=== PATIENT | male | born 1990 | race Hispanic/Latino ===

== ENCOUNTER → 2023-04-15 | Emergency (ER) | payer SELFPAY ==
[~2023-04-15] MED LIST: METOPROLOL TAR 25 MG TAB ONE
[2023-04-15 14:43] LABS: Absolute Lymphocytes (CBC) 0.8 K/uL (0.7-4.9); Hematocrit 41.5 % (39.6-49.0); Lymphocytes % 7.3 % (15.3-44.8); MCV 89.8 fL (80-100); Platelets 310 thou/uL (152-406); RBC Red Blood Cell Count 4.62 M/uL (4.33-5.43)
[2023-04-15 15:07] LABS: Albumin 4.1 g/dL (3.4-5.0); Bilirubin Direct 0.1 mg/dL (0-0.2); Bilirubin Indirect, Calculated 0.3 mg/dL (0.2-0.8); Bilirubin Total 0.4 mg/dL (0.2-1.0); Magnesium 2.2 mg/dL (1.6-2.4); Potassium 3.6 mEq/L (3.5-5.1); Protein, Total 8.1 g/dL (6.4-8.2); Troponin High Sensitivity 3.3 pg/mL (<58.9)
[2023-04-15 15:09] LABS: Specific Gravity 1.005 (1.005-1.030); Urine Bacteria <20 /HPF (<20); Urine Bilirubin NEGATIVE (Negative); Urine Blood Negative (Negative); Urine Clarity Clear (Clear); Urine Color Colorless (Yellow); Urine Glucose NEGATIVE (Negative); Urine Protein NEGATIVE (Negative); Urine RBC None Seen /HPF (None Seen); Urine Urobilinogen Normal (Normal); Urine pH 6.5 (5.0-7.0)
[2023-04-15 15:14] LABS: Barbiturates NEGATIVE (NEGATIVE); Benzodiazepines NEGATIVE (NEGATIVE); Cocaine NEGATIVE (NEGATIVE); METHAMPHETAM NEGATIVE (NEGATIVE); Methadone NEGATIVE (NEGATIVE); Opiates NEGATIVE (NEGATIVE); Phencyclidine NEGATIVE (NEGATIVE); THC Cannibis NEGATIVE (NEGATIVE)
[2023-04-15 15:14] LABS: Protime INR 1.23
--- NOTE | 2023-04-15 15:24 | RAD REPORT ---
EXAM DESCRIPTION: Sanya Single View04/15/2023 2:19 pm CLINICAL HISTORY: PALPITATIONS COMPARISON: No comparisons TECHNIQUE: Portable AP view of the chest. FINDINGS: The lungs are clear. No pneumothorax or effusion. The cardiomediastinal contours are unre markable. IMPRESSION: No acute cardiopulmonary process.
--- NOTE | 2023-04-15 18:15 | ER ---
Nurse's Notes [facility] Name: Vinecnzo Hdez Age: 32 yrs Sex: Male : 1990 Arrival Date: 04/15/2023 Time: 13:16 Bed 12 Private MD: Diagnosis: Chest pain, unspecified;Palpitations Presentation: 04/15 13:58 Chief complaint: Patient states: Pt c/o rapid heart rate and chest pressure while tl4 driving at 1120 today. Pt has had several similar events and had episode of SVT. Pt denies SOB, diaphoresis, nausea. Coronavirus screen: At this time, the client does not indicate any symptoms associated with coronavirus-19. Ebola Screen: No symptoms or risks identified at this time. Initial Sepsis Screen: Does the patient meet any 2 criteria? No. Patient's initial sepsis screen is negative. Does the patient have a suspected source of infection? No. Patient's initial sepsis screen is negative. Risk Assessment: Do you want to hurt yourself or someone else? Patient reports no desire to harm self or others. Onset of symptoms was April 15, 2023 at 11:20. 13:58 Method Of Arrival: Ambulatory tl4 13:58 Acuity: DANIEL 2 tl4 Triage Assessment: 14:00 General: Appears in no apparent distress. Behavior is calm, cooperative. Pain: tl4 Complains of pain in chest. EENT: No deficits noted. No signs and/or symptoms were reported regarding the EENT system. Neuro: No deficits noted. Cardiovascular: Reports chest pain, palpitations, Denies diaphoresis, fatigue, lightheadedness, nausea, shortness of breath, syncope. Respiratory: No deficits noted. Denies cough, shortness of breath. GI: No deficits noted. No signs and/or symptoms were reported involving the gastrointestinal system. : No deficits noted. No signs and/or symptoms were reported regarding the genitourinary system. Musculoskeletal: No deficits noted. No signs and/or symptoms reported regarding the musculoskeletal system. Historical: - Allergies: 14:00 No Known Allergies; tl4 - Home Meds: 14:00 None [Active]; tl4 - PMHx: 14:00 SVT; tl4 - Immunization history:: Adult Immunizations unknown. - Social history:: Smoking status: Patient denies any tobacco usage or history of. Screenin:40 [facility] ED Fall Risk Assessment (Adult) History of falling in the last 3 months, bp including since admission No falls in past 3 months (0 pts). Abuse screen: Denies threats or abuse. Denies injuries from another. Nutritional screening: No deficits noted. Tuberculosis screening: No symptoms or risk factors identified. Assessment: 18:00 General: SEE TRIAGE NOTE. bp 18:40 Reassessment: DC HOME AMBULATORY. bp Vital Signs: 13:58 BP 152 / 105; Pulse 90; Resp 16; Temp 98.3(O); Pulse Ox 100% on R/A; Pain 5/10; tl4 18:40 BP 147 / 75; Pulse 85; Resp 16; Pulse Ox 100% ; bp 13:58 Pain Scale: Adult tl4 ED Course: 13:21 Patient arrived in ED. mg5 13:28 Nigel Mcduffie PA is PHCP. cp 13:28 Guillermo Ramsay MD is Attending Physician. cp 13:59 Triage completed. tl4 14:01 Arm band placed on right wrist. tl4 14:21 XRAY Chest (1 view) In Process Unspecified. EDMS 14:39 Basic Metabolic Panel Sent. bc6 14:39 CBC with Diff Sent. bc6 14:39 D-Dimer Sent. bc6 14:39 LFT's Sent. bc6 14:39 Magnesium Sent. bc6 14:39 PT-INR Sent. bc6 14:39 Troponin HS Sent. bc6 14:39 Inserted saline lock: 20 gauge in right antecubital area, using aseptic technique. bc6 Blood collected. 14:39 Urinalysis W/Microscopic Sent. bc6 14:39 UDS Sent. bc6 18:08 Timoteo King, RN is Primary Nurse. bp 18:40 Patient has correct armband on for positive identification. Provided Education on: N/A. bp Cardiac monitoring not applicable on this patient. 18:40 Patient maintains SpO2 saturation greater than 95% on room air. bp 18:42 No provider procedures requiring assistance completed. IV discontinued, intact, bp bleeding controlled, No redness/swelling at site. Pressure dressing applied. Administered Medications: 17:09 Drug: Metoprolol PO 12.5 mg PO once Route: PO; tl4 18:42 Follow up: Response: No adverse reaction bp Medication: 18:40 VIS not applicable for this client. bp Outcome: 18:14 Discharge ordered by . cp 18:42 Discharged to home ambulatory, bp 18:42 Condition: stable 18:42 Discharge instructions given to patient, Instructed on discharge instructions, follow up and referral plans. Demonstrated understanding of instructions, follow-up care, 18:42 Patient left the ED. bp Signatures: Dispatcher [employer] EDMS Nigel Mcduffie PA PA cp Peltier, Brian, RN RN bp Mary Nieto 6 Deb Jaffe mg5 Jaya Chamberlain RN RN tl4
--- NOTE | 2023-04-15 18:15 | EDPHYS ---
Physician Documentation [facility] Name: Vincenzo Hdez Age: 32 yrs Sex: Male : 1990 Arrival Date: 04/15/2023 Time: 13:16 Bed 12 Private MD: ED Physician Guillermo Ramsay HPI: 04/15 13:55 This 32 yrs old Male presents to ER via Ambulatory with complaints of Chest cp Pressure, Heart Rate Problem. 13:55 The patient presents with a history of heart racing. cp 13:55 Context: The symptoms occur at rest. Onset: The symptoms/episode began/occurred today. cp Duration: The patient or guardian reports a single episode, improved. Associated signs and symptoms: Pertinent positives: chest pain, Pertinent negatives: cough, fever, SOB, syncope, near-syncope, vomiting. Severity of symptoms: in the emergency department the symptoms have improved. The patient has experienced similar episodes in the past, several times, today's symptoms are similar, to when the patient was apparently diagnosed with SVT. Historical: - Allergies: 14:00 No Known Allergies; tl4 - Home Meds: 14:00 None [Active]; tl4 - PMHx: 14:00 SVT; tl4 - Immunization history:: Adult Immunizations unknown. - Social history:: Smoking status: Patient denies any tobacco usage or history of. ROS: 14:00 Constitutional: Negative for body aches, chills, fever, poor PO intake, cp 14:00 Cardiovascular: Positive for chest pain, palpitations, Negative for edema, cp 14:00 Eyes: Negative for injury, pain, redness, and discharge, cp 14:00 ENT: Negative for drainage from ear(s), ear pain, sore throat, difficulty swallowing, difficulty handling secretions, 14:00 Respiratory: Negative for cough, shortness of breath, wheezing, 14:00 Abdomen/GI: Negative for abdominal pain, nausea, vomiting, and diarrhea, 14:00 Skin: Negative for cellulitis, rash, 14:00 Neuro: Negative for altered mental status, dizziness, syncope, near syncope, weakness, 14:00 All other systems are negative, Exam: 14:00 ECG was reviewed by the Attending Physician. cp 14:05 Constitutional: The patient appears in no acute distress, alert, awake, cp non-diaphoretic, non-toxic, well developed, well nourished, 14:05 Head/Face: Normocephalic, atraumatic. cp 14:05 Eyes: Periorbital structures: appear normal, Pupils: equal, round, and reactive to cp light and accomodation, Extraocular movements: intact throughout, Conjunctiva: normal, no exudate, no injection, Sclera: no appreciated abnormality, Lids and lashes: appear normal, bilaterally, 14:05 ENT: External ear(s): are unremarkable, Nose: is normal, Mouth: Lips: moist, Oral cp mucosa: pink and intact, moist, Posterior pharynx: Airway: no evidence of obstruction, patent, 14:05 Neck: ROM/movement: is normal, is supple, without pain, no range of motions limitations, 14:05 Chest/axilla: Inspection: normal, 14:05 Cardiovascular: Rate: normal, Rhythm: regular, Edema: is not appreciated, JVD: is not appreciated, 14:05 Respiratory: the patient does not display signs of respiratory distress, Respirations: normal, no use of accessory muscles, no retractions, labored breathing, is not present, Breath sounds: are clear throughout, no decreased breath sounds, no stridor, no wheezing, 14:05 Abdomen/GI: Inspection: abdomen appears normal, Palpation: abdomen is soft and non-tender, in all quadrants, 14:05 Back: pain, is absent, ROM is normal, 14:05 Neuro: Orientation: to person, place \T\ time. Mentation: is normal, Cerebellar function: is grossly normal, Motor: moves all fours, strength is normal, Sensation: is normal, Gait: is steady, at a normal pace, without difficulty, Vital Signs: 13:58 BP 152 / 105; Pulse 90; Resp 16; Temp 98.3(O); Pulse Ox 100% on R/A; Pain 5/10; tl4 18:40 BP 147 / 75; Pulse 85; Resp 16; Pulse Ox 100% ; bp 13:58 Pain Scale: Adult tl4 MDM: 14:05 Patient medically screened. cp 18:13 Data reviewed: vital signs, nurses notes, lab test result(s), EKG, radiologic studies, cp plain films. 18:13 Differential diagnosis: arrythmia, stress disorder, electrolyte abnormality. I cp considered the following discharge prescriptions or medication management in the emergency department Medications were administered in the Emergency Department. See MAR. 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 Response to treatment: the patient's symptoms have mildly improved after treatment, and as a result, I will discharge patient. Special discussion: Based on the patient's history, exam, and Dx evaluation, there is no indication for emergent intervention or inpatient Tx. It is understood by the patient/guardian that if the Sx's persist or worsen they need to return immediately for re-evaluation. 04/15 13:49 Order name: Basic Metabolic Panel; Complete Time: 16:04 cp 04/15 16:04 Interpretation: Normal except: CL 108. cp 04/15 13:49 Order name: CBC with Diff; Complete Time: 16:04 cp 04/15 16:04 Interpretation: Normal except: JANETTE% 89.3; LYM% 7.3; MN% 2.8; NEUT A 9.3. cp 04/15 13:49 Order name: D-Dimer; Complete Time: 16:04 cp 04/15 13:49 Order name: LFT's; Complete Time: 16:04 cp 04/15 16:04 Interpretation: Normal except: AST 14; GLOB 4.0; A/G 1.0. cp 04/15 13:49 Order name: Magnesium; Complete Time: 16:04 cp 04/15 13:49 Order name: PT-INR; Complete Time: 16:04 cp 04/15 16:04 Interpretation: Normal except: PT 13.4. cp 04/15 13:49 Order name: Troponin HS; Complete Time: 16:04 cp 04/15 13:49 Order name: UDS; Complete Time: 16:04 cp 04/15 13:49 Order name: Urinalysis W/Microscopic; Complete Time: 16:04 cp 04/15 16:34 Order name: Troponin High Sensitivity: repeat at 1645; Complete Time: 18:07 04/15 18:07 Interpretation: Reviewed. 04/15 13:49 Order name: XRAY Chest (1 view); Complete Time: 16:04 04/15 16:05 Interpretation: Report review. 04/15 13:49 Order name: EKG; Complete Time: 13:49 04/15 13:49 Order name: Cardiac monitoring; Complete Time: 18:09 04/15 13:49 Order name: EKG - Nurse/Tech; Complete Time: 13:57 04/15 13:49 Order name: IV Saline Lock; Complete Time: 14:38 04/15 13:49 Order name: Labs collected and sent; Complete Time: 14:38 04/15 13:49 Order name: O2 Per Protocol; Complete Time: 18:09 04/15 13:49 Order name: O2 Sat Monitoring; Complete Time: 18:09 EC:00 Rate is 97 beats/min. Rhythm is regular. [place] interval is normal. QRS interval is normal. cp QT interval is normal. T waves are Inverted in lead III. Interpreted by me. Reviewed by me. Administered Medications: 17:09 Drug: Metoprolol PO 12.5 mg PO once Route: PO; tl4 18:42 Follow up: Response: No adverse reaction bp Disposition Summary: 04/15/23 18:14 Discharge Ordered Notes: Location: Home cp Problem: an ongoing problem cp Symptoms: have improved cp Condition: Stable cp Diagnosis - Chest pain, unspecified cp - Palpitations cp Followup: cp - With: Private Physician - When: 1 week - Reason: Recheck today's complaints Discharge Instructions: - Discharge Summary Sheet cp - Nonspecific Chest Pain, Adult cp - Palpitations cp - Aspirin and Your Heart cp Forms: - Medication Reconciliation Form cp - Thank You Letter cp - Antibiotic Education cp - Prescription Opioid Use cp - Patient Portal Instructions cp - Leadership Thank You Letter cp Addendum: 04/19/2023 00:58 I was immediately available for consultation during this patient's visit. I did not e c2 personally see the patient or discuss the patient with the MILES. . Signatures: Dispatcher [employer] Nigel Mcgraw PA PA cp Guillermo Ramsay MD MD ec2 Jaya Chamberlain RN RN tl4 Fernando, Timoteo RN bp
[2023-04-15 18:54] VITALS: BP 147/75; TEMP 98.3; O2SAT 100
--- NOTE | 2023-04-19 14:44 | EKG ---
Test Date: 2023-04-15 Test Time: 13:53:39 Risk Compliance Manager: TL MEASUREMENT RESULTS: Intervals: Rate: 97 MT: 136 QRSD: 72 QT: 348 QTc: 441 Lewis: P: 74 MT: 136 QRS: 61 T: 15 INTERPRETIVE STATEMENTS: Normal sinus rhythm Nonspecific T wave abnormality Abnormal ECG No previous ECG available for comparison Electronically Signed On 04-19-23 14:32:03 ADVERTISING DISPLAY ROTATOR by Marky Holly
== END ==
LOC: ER 13:16
DX: R07.89 Other chest pain (principal); R00.2 Palpitations
CPT/HCPCS: 36415; 71045; 80048; 80076; 80307; 81001; 83735; 84484; 85025; 85379; 85610; 93005